=== PATIENT | female | born 1965 | race Caucasian/White ===

== ENCOUNTER 2017-10-16 18:18 | Emergency (ER) | payer MEDICAID ==
[~2017-10-16] VITALS: Ht 170.2 cm; Wt 97.9 kg
[2017-10-16 18:21] VITALS: BP 104/67
[2017-10-16] MEDS ORDERED: SULFAMETH./TRIMETHOPRIM DS 800MG/160MG TABLET ONE (19:51)
[2017-10-16] MEDS ORDERED: CEFTRIAXONE 1,000 MG ONE (19:51)
[2017-10-16] MEDS ORDERED: SODIUM CHLORIDE 0.9% 1,000ML IVBOLUS ONE (20:00)
[2017-10-16] MEDS ORDERED: HYDROcodone/APAP 5/325 TABLET PO ONE (20:00)
[2017-10-16] MEDS ORDERED: SULFAMETH./TRIMETHOPRIM DS 800MG/160MG TABLET PO ONE (20:00)
[2017-10-16] MEDS ORDERED: CEFTRIAXONE 1,000 MG IM ONE (20:00)
[2017-10-16] MEDS ORDERED: SODIUM CHLORIDE FLUSH 10ML SYR IVF ONE (20:00)
[2017-10-16] MEDS ORDERED: CEFTRIAXONE PMX 1GM/50ML 50 ML IVPB ONE (20:00)
[2017-10-16] MEDS ORDERED: HYDROcodone/APAP 5/325 TABLET ONE (20:01)
== END 2017-10-16 20:16 | disposition home or self-care (01) ==
LOC: ED 20:00
DX: L03.114 Cellulitis of left upper limb (principal); I89.1 Lymphangitis; I10 Essential (primary) hypertension; E11.9 Type 2 diabetes mellitus without complications; G89.29 Other chronic pain
CPT/HCPCS: 96372; 99283; J0696

== ENCOUNTER 2017-10-17 20:13 | Inpatient (IN) | payer MEDICAID ==
[~2017-10-17] VITALS: Ht 170.2 cm; Wt 104.1 kg
[2017-10-17] MEDS ORDERED: ONDANSETRON 2MG/ML, 2ML IVPush ONE (21:00)
[2017-10-17] MEDS ORDERED: VANCOMYCIN PER PHARMACY IV ONE (21:00)
[2017-10-17] MEDS ORDERED: SODIUM CHLORIDE 0.9% 1,000ML IVBOLUS ONE (21:00)
[2017-10-17] MEDS ORDERED: CEFAZOLIN PMX 1GM/50ML 50 ML IVPB ONE (21:00)
[2017-10-17] MEDS ORDERED: MORPHINE SULFATE 4 MG/ML, 1ML IV PRN (21:00)
[2017-10-17] MEDS ORDERED: SODIUM CHLORIDE FLUSH 10ML SYR IVF ONE (21:00)
[2017-10-17] MEDS ORDERED: VANCOMYCIN 2,000 MG in SODIUM CHLORIDE 0.9% 500 ML IV ONE (21:30)
[2017-10-17] MEDS ORDERED: CEFAZOLIN PMX 1GM/50ML 50 ML ONE (22:04)
[2017-10-17] MEDS ORDERED: MORPHINE SULFATE 4 MG/ML, 1ML ONE (22:04)
[2017-10-17] MEDS ORDERED: ONDANSETRON 2MG/ML, 2ML ONE (22:04)
[2017-10-17 22:15] LABS: BASOPHILS # (AUTO) 0.03 x10^3/uL (0-0.1); BASOPHILS % (AUTO) 0 % (0-1); EOSINOPHILS % (AUTO) 0 % (1-7); LYMPHOCYTES # (AUTO) 2.11 x10^3/uL (1-3.4); LYMPHOCYTES % (AUTO) 17 % (22-44); MD NO; MEAN CORPUSCULAR HEMOGLOBIN 27.2 pg (27.0-34.8); MEAN CORPUSCULAR VOLUME 82.5 fL (80-100); MEAN PLATELET VOLUME 9.2 fL (7.4-10.4); MONOCYTES # (AUTO) 0.61 x10^3/uL (0.2-0.8); MONOCYTES % (AUTO) 5 % (2-9); NEUTROPHILS # (AUTO) 9.73 x10^3/uL (1.8-6.8); NEUTROPHILS % (AUTO) 78 % (42-75); PLATELET COUNT 181 x10^3/uL (130-400); RED BLOOD COUNT 3.99 x10^6/uL (3.82-5.3); RED CELL DISTRIBUTION WIDTH 13.5 % (9.6-15.2)
[2017-10-17 22:27] LABS: ALANINE AMINOTRANSFERASE 30 U/L (12-78); ANION GAP 6 mmol/L (5-15); CALCIUM 8.4 mg/dL (8.5-10.1); CHLORIDE 107 mmol/L (98-107); CREATININE 1.44 mg/dL (0.55-1.02)
[2017-10-17 22:30] LABS: ALKALINE PHOSPHATASE 89 U/L (45-117); BILIRUBIN,TOTAL 0.4 mg/dL (0.2-1.0); TOTAL PROTEIN 6.6 g/dL (6.4-8.2)
[2017-10-17 23:00] VITALS: BP 116/74
[2017-10-17] MEDS ORDERED: GLUCAGON 1 MG IM PRN (23:30)
[2017-10-17] MEDS ORDERED: DEXTROSE 50%, 50ML SYRINGE IVPush PRN (23:30)
[2017-10-17] MEDS ORDERED: DEXTROSE 4 GM TAB.CHEW PO PRN (23:30)
[2017-10-17] MEDS ORDERED: morphine SULFATE 10 MG/ML, 1ML IVPush PRN (23:30)
[2017-10-17] MEDS: SODIUM CHLORIDE 0.9% 1,000 ML IV SCH (23:55)
[2017-10-18] MEDS: NICOTINE 7 MG/24 HR PATCH.TD24 TD SCH ×2 (00:26→23:55)
[2017-10-18] MEDS: ENOXAPARIN 40 MG/0.4 ML SQ SCH ×2 (00:26→23:55)
[2017-10-18] MEDS: PREGABALIN 150 MG CAPSULE PO SCH ×2 (00:26→21:28)
[2017-10-18] MEDS: PREGABALIN 200 MG CAPSULE PO SCH ×2 (00:26→21:28)
[2017-10-18 02:10] VITALS: BP 90/54
[2017-10-18 05:13] LABS: BASOPHILS # (AUTO) 0.03 x10^3/uL (0-0.1); BASOPHILS % (AUTO) 0 % (0-1); EOSINOPHILS # (AUTO) 0.34 x10^3/uL (0-0.4); EOSINOPHILS % (AUTO) 3 % (1-7); LYMPHOCYTES # (AUTO) 3.07 x10^3/uL (1-3.4); LYMPHOCYTES % (AUTO) 28 % (22-44); MD NO; MEAN CORPUSCULAR HEMOGLOBIN 27.3 pg (27.0-34.8); MEAN CORPUSCULAR HGB CONC 32.7 g/dL (32.4-35.8); MEAN CORPUSCULAR VOLUME 83.4 fL (80-100); MEAN PLATELET VOLUME 9.2 fL (7.4-10.4); MONOCYTES # (AUTO) 0.68 x10^3/uL (0.2-0.8); MONOCYTES % (AUTO) 6 % (2-9); NEUTROPHILS # (AUTO) 6.92 x10^3/uL (1.8-6.8); NEUTROPHILS % (AUTO) 63 % (42-75); PLATELET COUNT 171 x10^3/uL (130-400); RED CELL DISTRIBUTION WIDTH 13.8 % (9.6-15.2)
[2017-10-18 05:23] LABS: ANION GAP 6 mmol/L (5-15); CALCIUM 8.3 mg/dL (8.5-10.1); CHLORIDE 110 mmol/L (98-107)
[2017-10-18 05:26] LABS: CREATININE 1.43 mg/dL (0.55-1.02)
[2017-10-18] MEDS ORDERED: VANCOMYCIN PER PHARMACY MC PRN (05:30)
[2017-10-18] MEDS ORDERED: PHARMACOKINETIC MONITORING MC PRN (06:00)
[2017-10-18] MEDS: CEFAZOLIN PMX 1GM/50ML 50 ML IV SCH ×3 (06:16→22:06)
[2017-10-18] MEDS ORDERED: INSULIN DETEMIR 100 UNITS/ML, PEN SQ-INSULIN SCH (07:30)
[2017-10-18] MEDS: INSULIN ASPART 100 UNITS/ML, PEN SQ-INSULIN SCH ×2 (07:53→21:00)
[2017-10-18 07:55] VITALS: BP 132/81
[2017-10-18] MEDS: SODIUM CHLORIDE FLUSH 10ML SYR IVF SCH ×2 (09:00→21:29)
[2017-10-18] MEDS: SODIUM CHLORIDE 0.9% 1,000 ML IV SCH (09:46)
[2017-10-18] MEDS ORDERED: GLYCERIN ADULT SUPP PR ONE (12:00)
[2017-10-18] MEDS: INSULIN DETEMIR 100 UNITS/ML, PEN SQ-INSULIN SCH (12:19)
[2017-10-18 16:10] VITALS: BP 119/72
[2017-10-18 20:09] VITALS: BP 132/79
[2017-10-18] MEDS: VANCOMYCIN 2,000 MG in SODIUM CHLORIDE 0.9% 500 ML IV SCH (23:03)
[2017-10-19] MEDS: INSULIN DETEMIR 100 UNITS/ML, PEN SQ-INSULIN SCH ×2 (00:02→20:08)
[2017-10-19 02:49] VITALS: BP 108/66
[2017-10-19 06:10] LABS: CHLORIDE 114 mmol/L (98-107)
[2017-10-19] MEDS: CEFAZOLIN PMX 1GM/50ML 50 ML IV SCH ×3 (06:13→21:41)
[2017-10-19 06:16] LABS: ANION GAP 7 mmol/L (5-15); CALCIUM 8.2 mg/dL (8.5-10.1); CREATININE 0.87 mg/dL (0.55-1.02)
[2017-10-19] MEDS: INSULIN ASPART 100 UNITS/ML, PEN SQ-INSULIN SCH ×2 (09:00→20:46)
[2017-10-19] MEDS: SODIUM CHLORIDE FLUSH 10ML SYR IVF SCH ×2 (09:00→20:48)
[2017-10-19 09:32] VITALS: BP 120/80
[2017-10-19 14:23] VITALS: BP 132/82
[2017-10-19 20:30] VITALS: BP 133/88
[2017-10-19] MEDS: PREGABALIN 200 MG CAPSULE PO SCH (20:47)
[2017-10-19] MEDS: PREGABALIN 150 MG CAPSULE PO SCH (20:47)
[2017-10-19] MEDS: VANCOMYCIN 2,000 MG in SODIUM CHLORIDE 0.9% 500 ML IV SCH (23:02)
[2017-10-19] MEDS: NICOTINE 7 MG/24 HR PATCH.TD24 TD SCH (23:39)
[2017-10-19] MEDS: ENOXAPARIN 40 MG/0.4 ML SQ SCH (23:39)
[2017-10-20 02:55] VITALS: BP 128/85
[2017-10-20] MEDS: CEFAZOLIN PMX 1GM/50ML 50 ML IV SCH ×3 (06:21→22:07)
[2017-10-20 07:15] VITALS: BP 108/69
[2017-10-20] MEDS: INSULIN ASPART 100 UNITS/ML, PEN SQ-INSULIN SCH ×2 (09:00→21:59)
[2017-10-20] MEDS: INSULIN DETEMIR 100 UNITS/ML, PEN SQ-INSULIN SCH ×2 (09:02→21:58)
[2017-10-20] MEDS: SODIUM CHLORIDE FLUSH 10ML SYR IVF SCH ×2 (09:03→21:58)
[2017-10-20 13:12] VITALS: BP 124/53
[2017-10-20 20:33] VITALS: BP 134/53
[2017-10-20] MEDS: PREGABALIN 150 MG CAPSULE PO SCH (21:58)
[2017-10-20] MEDS: PREGABALIN 200 MG CAPSULE PO SCH (21:58)
[2017-10-20] MEDS: NICOTINE 7 MG/24 HR PATCH.TD24 TD SCH (23:30)
[2017-10-20] MEDS: VANCOMYCIN 2,000 MG in SODIUM CHLORIDE 0.9% 500 ML IV SCH (23:55)
[2017-10-20] MEDS: ENOXAPARIN 40 MG/0.4 ML SQ SCH (23:55)
[2017-10-21 02:27] VITALS: BP 113/74
[2017-10-21] MEDS: CEFAZOLIN PMX 1GM/50ML 50 ML IV SCH (06:25)
[2017-10-21] MEDS: INSULIN DETEMIR 100 UNITS/ML, PEN SQ-INSULIN SCH (06:58)
[2017-10-21 08:15] VITALS: BP 122/79
[2017-10-21] MEDS: INSULIN ASPART 100 UNITS/ML, PEN SQ-INSULIN SCH (08:48)
[2017-10-21] MEDS: SODIUM CHLORIDE FLUSH 10ML SYR IVF SCH (09:00)
[2017-10-21] MEDS ORDERED: CLIN300C8 PO (12:30)
== END 2017-10-21 13:10 | disposition home or self-care (01) | DRG 603 ==
LOC: ED 21:30 → EDIP 21:35 → 4NOR 22:16
PROVIDERS: ADMIT Family Medicine; ATTEND Family Medicine
DX: L03.114 Cellulitis of left upper limb (principal); N17.9 Acute kidney failure, unspecified; E11.65 Type 2 diabetes mellitus with hyperglycemia; F17.200 Nicotine dependence, unspecified, uncomplicated; F12.90 Cannabis use, unspecified, uncomplicated; G89.29 Other chronic pain; M54.5 Low back pain; I10 Essential (primary) hypertension; I89.1 Lymphangitis; K59.09 Other constipation; M19.90 Unspecified osteoarthritis, unspecified site; S69.92XA Unspecified injury of left wrist, hand and finger(s), initial encounter; W22.09XA Striking against other stationary object, initial encounter; G56.00 Carpal tunnel syndrome, unspecified upper limb; M54.2 Cervicalgia; Z80.8 Family history of malignant neoplasm of other organs or systems; Z82.49 Family history of ischemic heart disease and other diseases of the circulatory system; Z79.4 Long term (current) use of insulin; Z80.0 Family history of malignant neoplasm of digestive organs; Z98.51 Tubal ligation status
CPT/HCPCS: 36415; 80048; 80053; 80202; 82550; 82962; 83605; 85025; 86140; 87040; 96374; 96375; J0690; J1650; J1815; J2405; J3370; J7030; J7040

== ENCOUNTER 2019-02-17 20:52 | Emergency (ER) | payer MEDICAID ==
[~2019-02-17] VITALS: Ht 167.6 cm; Wt 88.0 kg
[~2019-02-17 20:52] MED LIST: CLIN300C8 PO
[2019-02-17] MEDS ORDERED: LISI-170 PO (21:29)
[2019-02-17] MEDS ORDERED: CITA40TA5 PO (21:29)
[2019-02-17] MEDS ORDERED: GABA300C10 PO (21:30)
[2019-02-17] MEDS ORDERED: TIZA4CAP PO (21:30)
[2019-02-17] MEDS ORDERED: INSU100V8 SQ (21:31)
--- NOTE | 2019-02-17 21:32 | NUR ---
ASSUMED CARE OF PATIENT. PATIENT REPORETS A COUGH X2 DAYS. PT ALSO REPORTS A "BUMP" ON HER CEST THAT SHE CAN FEEL AND IT IS CAUSING HER PAIN. PT REPORTS SHE IS SUPPOSED TO HAVE A CT ON THE BUT DOES NOT WANT TO WAIT THAT LONG. VS STABLE. MANUFACTURING ADVISOR ON. SINUS TACH NOTED. CALL LIGHT IN PLACE. WILL CONTINUE TO MONITOR.
--- NOTE | 2019-02-17 21:49 | NUR ---
PT SEEN BY SELENA CARVER. PT RESTING IN ROOM. REGULAR RESP. NO ACUTE DISTRESS NOTED.
[2019-02-17 21:59] LABS: BASOPHILS # (AUTO) 0.02 x10^3/uL (0-0.1); BASOPHILS % (AUTO) 0 % (0-1); EOSINOPHILS # (AUTO) 0.05 x10^3/uL (0-0.4); EOSINOPHILS % (AUTO) 1 % (1-7); LYMPHOCYTES # (AUTO) 1.37 x10^3/uL (1-3.4); LYMPHOCYTES % (AUTO) 26 % (22-44); MD NO; MEAN CORPUSCULAR HEMOGLOBIN 27.7 pg (27.0-34.8); MEAN CORPUSCULAR HGB CONC 33.3 g/dL (32.4-35.8); MEAN CORPUSCULAR VOLUME 83.2 fL (80-100); MEAN PLATELET VOLUME 8.7 fL (7.4-10.4); MONOCYTES # (AUTO) 0.46 x10^3/uL (0.2-0.8); MONOCYTES % (AUTO) 9 % (2-9); NEUTROPHILS # (AUTO) 3.34 x10^3/uL (1.8-6.8); NEUTROPHILS % (AUTO) 64 % (42-75); PLATELET COUNT 223 x10^3/uL (130-400); RED BLOOD COUNT 3.96 x10^6/uL (3.82-5.3); RED CELL DISTRIBUTION WIDTH 16.4 % (9.6-15.2)
[2019-02-17] MEDS ORDERED: ALBUTEROL/IPRATROPIUM 2.5MG/0.5MG, 3 ML NPPB ONE (22:00)
[2019-02-17] MEDS ORDERED: ALBUTEROL/IPRATROPIUM 2.5MG/0.5MG, 3 ML ONE (22:01)
[2019-02-17 22:10] LABS: ALANINE AMINOTRANSFERASE 28 U/L (12-78); ALBUMIN 3.2 g/dL (3.4-5.0); ANION GAP 8 mmol/L (5-15); CALCIUM 8.1 mg/dL (8.5-10.1); CHLORIDE 114 mmol/L (98-107); CREATININE 1.07 mg/dL (0.55-1.02)
[2019-02-17 22:14] LABS: ALKALINE PHOSPHATASE 106 U/L (45-117); TOTAL PROTEIN 6.1 g/dL (6.4-8.2)
[2019-02-17 22:15] LABS: BILIRUBIN,TOTAL < 0.1 mg/dL (0.2-1.0)
[2019-02-17 22:25] VITALS: BP 123/74
--- NOTE | 2019-02-17 22:25 | NUR ---
PT RESTING IN ROOM. NO ACUTE DISTRESS NOTED. CALL LIGHT IN PLACE. WILL CONTINUE TO MONITOR.
== END 2019-02-17 22:58 | disposition home or self-care (01) ==
LOC: ED 22:03
DX: J20.9 Acute bronchitis, unspecified (principal); R07.89 Other chest pain; G89.29 Other chronic pain; F17.200 Nicotine dependence, unspecified, uncomplicated; I10 Essential (primary) hypertension; E11.9 Type 2 diabetes mellitus without complications
CPT/HCPCS: 36415; 71046; 80053; 84484; 85025; 93005; 94640; 99284; J7620

== ENCOUNTER 2019-04-05 12:51 | Inpatient (IN) | payer MEDICAID ==
[~2019-04-05] VITALS: Ht 167.6 cm; Wt 85.6 kg
[~2019-04-05 12:51] MED LIST changes: +CITA40TA5 PO; +GABA300C10 PO; +INSU100V8 SQ; +LISI-170 PO; +TIZA4CAP PO
[2019-04-05 13:30] LABS: ALBUMIN 3.9 g/dL (3.4-5.0); ANION GAP 7 mmol/L (5-15); CALCIUM 9.3 mg/dL (8.5-10.1); CHLORIDE 106 mmol/L (98-107); CREATININE 1.18 mg/dL (0.55-1.02)
--- NOTE | 2019-04-05 13:30 | NUR ---
ASSUMED CARE OF PT FROM LOBBY AT THIS TIME.
[2019-04-05 13:34] LABS: BASOPHILS # (AUTO) 0.05 x10^3/uL (0-0.1); BASOPHILS % (AUTO) 0 % (0-1); EOSINOPHILS # (AUTO) 0.14 x10^3/uL (0-0.4); EOSINOPHILS % (AUTO) 1 % (1-7); LYMPHOCYTES # (AUTO) 3.44 x10^3/uL (1-3.4); LYMPHOCYTES % (AUTO) 26 % (22-44); MD NO; MEAN CORPUSCULAR HEMOGLOBIN 26.4 pg (27.0-34.8); MEAN CORPUSCULAR HGB CONC 31.8 g/dL (32.4-35.8); MEAN CORPUSCULAR VOLUME 82.9 fL (80-100); MONOCYTES # (AUTO) 0.63 x10^3/uL (0.2-0.8); MONOCYTES % (AUTO) 5 % (2-9); NEUTROPHILS # (AUTO) 8.84 x10^3/uL (1.8-6.8); NEUTROPHILS % (AUTO) 68 % (42-75); PLATELET COUNT 362 x10^3/uL (130-400); RED BLOOD COUNT 5.46 x10^6/uL (3.82-5.3); RED CELL DISTRIBUTION WIDTH 14.3 % (9.6-15.2)
--- NOTE | 2019-04-05 13:40 | NUR ---
PT C/O PAIN WITH URINATION FOR 7 DAYS AND PT TOOK OTC PYRIDIUM WITH NO RELIEF. PT REPORTS BURNING PAIN, CONSTANT.
[2019-04-05] MEDS ORDERED: MORPHINE SULFATE 4 MG/ML, 1ML ONE ×2 (14:25→15:33)
[2019-04-05] MEDS ORDERED: MORPHINE SULFATE 4 MG/ML, 1ML IVPush ONE (14:30)
--- NOTE | 2019-04-05 14:39 | NUR ---
PT MEDICATED ORDERED. IV STARTED. UA COLLECTED AND WALKED TO THE LAB.
--- NOTE | 2019-04-05 14:41 | NUR ---
DR. BORJA AT BEDSIDE FOR PELVIC EXAM.
[2019-04-05 15:19] LABS: CULTURE INDICATED? YES; MICROSCOPIC INDICATED
--- NOTE | 2019-04-05 15:27 | NUR ---
CHART UP FOR MD RECHECK. PT AWARE. VSS.
[2019-04-05] MEDS ORDERED: CEFTRIAXONE PMX 1GM/50ML 50 ML IVPB ONE (15:30)
[2019-04-05] MEDS ORDERED: morphine SULFATE 10 MG/ML, 1ML IVPush ONE (15:30)
--- NOTE | 2019-04-05 15:31 | NUR ---
PT TO BE ADMITTED. PER DR. BORJA PT HAS LARGE HERPATIC LESIONS. WAITING FOR BLOOD CULTURES X 2 TO BE DRAWN.
[2019-04-05] MEDS ORDERED: CEFTRIAXONE PMX 1GM/50ML 50 ML ONE (15:33)
[2019-04-05] MEDS ORDERED: LIRA0.6P SQ (15:40)
--- NOTE | 2019-04-05 16:05 | NUR ---
ANTIBIOTICS STARTED AFTER BLOOD CULTURES X 2 WERE DRAWN.
[2019-04-05] MEDS ORDERED: ACETAMINOPHEN 325 MG TABLET PO PRN (16:30)
[2019-04-05] MEDS: NICOTINE 7 MG/24 HR PATCH.TD24 TD SCH (16:30)
[2019-04-05] MEDS ORDERED: SODIUM CHLORIDE 0.9% 2,500 ML IV SCH (16:30)
[2019-04-05] MEDS ORDERED: morphine SULFATE 10 MG/ML, 1ML IVPush PRN (16:30)
[2019-04-05] MEDS ORDERED: LABETALOL 5MG/ML, 20ML IVPush PRN (16:30)
[2019-04-05] MEDS ORDERED: ONDANSETRON 2MG/ML, 2ML IVPush PRN (16:30)
[2019-04-05] MEDS ORDERED: hydrALAzine 20 MG/ML, 1ML IVPush PRN (16:30)
[2019-04-05 17:02] LABS: HEMOGLOBIN A1C 9.3 % (4.2-6.3)
[2019-04-05] MEDS: HYDROcodone/APAP 5/325 TABLET PO PRN ×2 (17:43→22:14)
[2019-04-05] MEDS: HEPARIN 5,000 UNITS/ML, 1ML SQ SCH (17:43)
[2019-04-05 19:14] VITALS: BP 107/62
[2019-04-05] MEDS: SODIUM CHLORIDE 0.9% 1,000 ML IV SCH (19:17)
[2019-04-05] MEDS: ACYCLOVIR 800 MG TABLET PO SCH (20:15)
[2019-04-05] MEDS: PHENAZOPYRIDINE 200 MG TABLET PO SCH (20:15)
[2019-04-05] MEDS: GABAPENTIN 300 MG CAPSULE PO SCH (20:15)
[2019-04-05] MEDS: INSULIN GLARGINE 100 UNITS/ML, PEN SQ-INSULIN SCH (21:09)
[2019-04-06] MEDS: HEPARIN 5,000 UNITS/ML, 1ML SQ SCH ×3 (00:41→18:11)
[2019-04-06 01:54] VITALS: BP 136/85
[2019-04-06] MEDS: HYDROcodone/APAP 5/325 TABLET PO PRN ×5 (02:20→19:19)
[2019-04-06] MEDS: SODIUM CHLORIDE 0.9% 1,000 ML IV SCH ×2 (05:36→19:19)
[2019-04-06] MEDS: ACYCLOVIR 800 MG TABLET PO SCH ×5 (06:29→20:30)
[2019-04-06 07:04] LABS: BASOPHILS # (AUTO) 0.06 x10^3/uL (0-0.1); BASOPHILS % (AUTO) 1 % (0-1); EOSINOPHILS # (AUTO) 0.22 x10^3/uL (0-0.4); EOSINOPHILS % (AUTO) 2 % (1-7); LYMPHOCYTES # (AUTO) 4.24 x10^3/uL (1-3.4); LYMPHOCYTES % (AUTO) 44 % (22-44); MD NO; MEAN CORPUSCULAR HGB CONC 31.8 g/dL (32.4-35.8); MEAN CORPUSCULAR VOLUME 84.8 fL (80-100); MEAN PLATELET VOLUME 8.8 fL (7.4-10.4); MONOCYTES # (AUTO) 0.41 x10^3/uL (0.2-0.8); MONOCYTES % (AUTO) 4 % (2-9); NEUTROPHILS % (AUTO) 49 % (42-75); PLATELET COUNT 302 x10^3/uL (130-400); RED BLOOD COUNT 4.77 x10^6/uL (3.82-5.3); RED CELL DISTRIBUTION WIDTH 14.2 % (9.6-15.2)
[2019-04-06 07:05] VITALS: BP 110/66
[2019-04-06 07:11] LABS: ALBUMIN 3.1 g/dL (3.4-5.0); ANION GAP 5 mmol/L (5-15); CALCIUM 8.6 mg/dL (8.5-10.1); CHLORIDE 112 mmol/L (98-107)
[2019-04-06 07:15] LABS: ALANINE AMINOTRANSFERASE 17 U/L (12-78); ALKALINE PHOSPHATASE 97 U/L (45-117); BILIRUBIN,TOTAL 0.4 mg/dL (0.2-1.0); CREATININE 0.92 mg/dL (0.55-1.02); TOTAL PROTEIN 6.3 g/dL (6.4-8.2)
[2019-04-06] MEDS: ONDANSETRON ODT 4 MG PO PRN ×2 (08:13→18:11)
[2019-04-06] MEDS: INSULIN GLARGINE 100 UNITS/ML, PEN SQ-INSULIN SCH ×2 (09:12→20:38)
[2019-04-06] MEDS: CITALOPRAM 20 MG TABLET PO SCH (09:13)
[2019-04-06] MEDS: PHENAZOPYRIDINE 200 MG TABLET PO SCH ×2 (09:13→20:30)
[2019-04-06] MEDS: GABAPENTIN 300 MG CAPSULE PO SCH ×2 (09:13→20:30)
[2019-04-06 14:00] VITALS: BP 128/74
[2019-04-06] MEDS ORDERED: CEFTRIAXONE PMX 1GM/50ML 50 ML IV SCH (16:30)
[2019-04-06] MEDS: NICOTINE 7 MG/24 HR PATCH.TD24 TD SCH (16:30)
[2019-04-06 18:47] VITALS: BP 132/74
[2019-04-07 00:14] VITALS: BP 131/78
[2019-04-07] MEDS: HYDROcodone/APAP 5/325 TABLET PO PRN ×4 (00:37→14:21)
[2019-04-07] MEDS: HEPARIN 5,000 UNITS/ML, 1ML SQ SCH ×2 (00:37→09:07)
[2019-04-07] MEDS: ONDANSETRON ODT 4 MG PO PRN (00:45)
[2019-04-07] MEDS: ACYCLOVIR 800 MG TABLET PO SCH ×2 (05:12→09:07)
[2019-04-07 06:11] LABS: BASOPHILS # (AUTO) 0.05 x10^3/uL (0-0.1); BASOPHILS % (AUTO) 1 % (0-1); EOSINOPHILS # (AUTO) 0.21 x10^3/uL (0-0.4); EOSINOPHILS % (AUTO) 3 % (1-7); LYMPHOCYTES # (AUTO) 3.49 x10^3/uL (1-3.4); LYMPHOCYTES % (AUTO) 47 % (22-44); MD NO; MEAN CORPUSCULAR HGB CONC 31.9 g/dL (32.4-35.8); MEAN CORPUSCULAR VOLUME 84.7 fL (80-100); MEAN PLATELET VOLUME 8.9 fL (7.4-10.4); MONOCYTES # (AUTO) 0.34 x10^3/uL (0.2-0.8); MONOCYTES % (AUTO) 5 % (2-9); NEUTROPHILS # (AUTO) 3.33 x10^3/uL (1.8-6.8); NEUTROPHILS % (AUTO) 45 % (42-75); PLATELET COUNT 257 x10^3/uL (130-400); RED BLOOD COUNT 4.27 x10^6/uL (3.82-5.3)
[2019-04-07 06:13] LABS: CHLORIDE 113 mmol/L (98-107)
[2019-04-07 06:18] LABS: ALANINE AMINOTRANSFERASE 11 U/L (12-78); ALBUMIN 2.9 g/dL (3.4-5.0); ALKALINE PHOSPHATASE 80 U/L (45-117); ANION GAP 3 mmol/L (5-15); BILIRUBIN,TOTAL 0.2 mg/dL (0.2-1.0); CALCIUM 8.5 mg/dL (8.5-10.1); CREATININE 0.83 mg/dL (0.55-1.02); TOTAL PROTEIN 5.8 g/dL (6.4-8.2)
[2019-04-07 07:15] VITALS: BP 127/70
[2019-04-07] MEDS ORDERED: AMOXICILLIN/CLAV 875-125MG TABLET PO SCH (09:00)
[2019-04-07] MEDS: PHENAZOPYRIDINE 200 MG TABLET PO SCH (09:07)
[2019-04-07] MEDS: CITALOPRAM 20 MG TABLET PO SCH (09:07)
[2019-04-07] MEDS: GABAPENTIN 300 MG CAPSULE PO SCH (09:07)
[2019-04-07] MEDS ORDERED: PHEN-583 PO (11:55)
[2019-04-07] MEDS ORDERED: ACYC15OI6 TP (11:55)
[2019-04-07] MEDS ORDERED: ACYC-113 PO ×3 (11:55→12:25)
[2019-04-07] MEDS ORDERED: AMOX1TAB12 PO (11:55)
[2019-04-07] MEDS ORDERED: INSU100I13 SQ-INSULIN (11:55)
[2019-04-07] MEDS ORDERED: INSULIN LISPRO 100 UNITS/ML, PEN SQ-INSULIN SCH (12:00)
[2019-04-07] MEDS ORDERED: INSU100I11 SQ-INSULIN (12:23)
[2019-04-07] MEDS: ACYCLOVIR OINT 5%, 5GM TP SCH ×2 (14:00→14:21)
[2019-04-07 14:52] VITALS: BP 131/74
[2019-04-07] MEDS ORDERED: ACYCLOVIR 200 MG CAPSULE PO SCH (16:00)
[2019-04-07] MEDS ORDERED: INSULIN GLARGINE 100 UNITS/ML, PEN SQ-INSULIN SCH (21:00)
== END 2019-04-07 14:59 | disposition home or self-care (01) | DRG 871 ==
LOC: ED 15:25 → EDIP 15:26 → ED 15:40 → 3NE 16:23
PROVIDERS: ADMIT Internal Medicine; ATTEND Internal Medicine
DX: A41.9 Sepsis, unspecified organism (principal); N17.0 Acute kidney failure with tubular necrosis; N39.0 Urinary tract infection, site not specified; E11.65 Type 2 diabetes mellitus with hyperglycemia; I10 Essential (primary) hypertension; A60.00 Herpesviral infection of urogenital system, unspecified; B95.1 Streptococcus, group B, as the cause of diseases classified elsewhere; D50.9 Iron deficiency anemia, unspecified; M54.5 Low back pain; G89.29 Other chronic pain; Z88.2 Allergy status to sulfonamides; Z98.891 History of uterine scar from previous surgery; Z98.51 Tubal ligation status; Z98.84 Bariatric surgery status; Z90.89 Acquired absence of other organs
CPT/HCPCS: 36415; 76770; 80048; 80053; 81001; 82040; 82962; 83036; 83605; 85025; 87040; 87070; 87086; 87205; 96365; 96366; 96375; 96376; G0378; J0696; J1644; Q0162; J1815; J2270; J7030